=== PATIENT | male | born 1965 | race Two or more races ===

== ENCOUNTER 2021-11-21 15:20 | Emergency (ER) | payer SELFPAY ==
[~2021-11-21] VITALS: Ht 167.6 cm; Wt 72.6 kg
[2021-11-21] MEDS ORDERED: ACETAMINOPHEN 325 MG TAB PO ONE (15:30)
[2021-11-21 16:10] VITALS: BP 125/94
[2021-11-21] MEDS ORDERED: NAP500T GT (16:12)
[2021-11-21] MEDS ORDERED: CLIN150C PO (16:12)
== END 2021-11-21 16:27 | disposition home or self-care (01) ==
LOC: ER 15:20
DX: K02.9 Dental caries, unspecified (principal)